=== PATIENT | male | born 1960 | race Caucasian/White ===

== ENCOUNTER 2017-11-08 02:27 | Emergency (ER) | payer MEDICAID ==
[~2017-11-08] VITALS: Ht 157.5 cm; Wt 74.5 kg
[2017-11-08 02:57] VITALS: Ht 157.5 cm; Wt 74.5 kg
[2017-11-08 06:37] VITALS: BP 160/101
== END 2017-11-08 06:37 | disposition home or self-care (01) ==
LOC: ED 02:27
DX: S43.014A Anterior dislocation of right humerus, initial encounter (principal); W18.30XA Fall on same level, unspecified, initial encounter; Y93.89 Activity, other specified; Y99.8 Other external cause status; Y92.89 Other specified places as the place of occurrence of the external cause
CPT/HCPCS: J1885; J2704; J7030; Q0092

== ENCOUNTER 2020-07-30 13:36 | Emergency (ER) | payer MEDICAID ==
[~2020-07-30] VITALS: Ht 165.1 cm; Wt 63.5 kg
[2020-07-30 14:32] VITALS: Ht 165.1 cm; Wt 63.5 kg
[2020-07-30 17:18] LABS: BASOPHIL % 0.9 % (0.2-1.5); PLATELET COUNT 194 x10^3mcL (152-348); RED CELL DISTRIBUTION WIDTH 14.4 % (12.1-16.2)
[2020-07-30 17:24] LABS: CALCIUM 9.3 mg/dL (8.5-10.1); CARBON DIOXIDE 28.7 mmol/L (21-32); CHLORIDE SERUM 99 mmol/L (98-107); GFR1 > 60 mL/min; GLUCOSE SERUM 106 mg/dL (74-106); POTASSIUM SERUM 4.1 mmol/L (3.5-5.1); SODIUM SERUM 134 mmol/L (136-145)
[2020-07-30 17:29] LABS: ALKALINE PHOSPHATASE 206 U/L (46-116); ALT/SGPT 62 U/L (16-63); AST/SGOT 80 U/L (15-37); BILIRUBIN TOTAL 1.3 mg/dL (0.20-1.00); LIPASE 160 IU/L (73-393)
[2020-07-30 17:32] LABS: ALBUMIN 2.8 g/dL (3.4-5.0)
[2020-07-30 18:15] LABS: rbc morphology (normal/abnorm) NORMAL (NORMAL)
[2020-07-30 18:33] VITALS: BP 144/90
== END 2020-07-30 18:33 | disposition home or self-care (01) ==
LOC: ED 13:36
DX: K27.9 Peptic ulcer, site unspecified, unspecified as acute or chronic, without hemorrhage or perforation (principal); M17.11 Unilateral primary osteoarthritis, right knee